=== PATIENT | female | born 1970 | race Caucasian/White ===

== ENCOUNTER 2021-04-13 02:05 | Inpatient (IN) | payer MEDICARE ==
[~2021-04-13] VITALS: Ht 167.6 cm; Wt 79.5 kg
[~2021-04-13 02:05] MED LIST: ACET500; ACETAMINOPHEN500 MG PO; Anaspaz0.125 MG PO; BACL10 PO; BACL20 PO; CHLO4 PO; ERGO400 PO; FLONASE ALLERG9.9 ML NS; GABA300 PO; HYOS.125 SL; LOESTRIN PO; MECL25 PO; MELO7.5 PO; METO10 PO; MEXI200 PO; Medi-Meclizine25 MG PO; NORT25 PO; ORACON PO; PHENYLEPHRINE HCL PO; VITAMIN D310 MC4 PO; [UNRECOGNIZED DRUG - OTHER] PO
[2021-04-13 02:53] LABS: BASOPHILS ABSOLUTE AUTO 0.05 K/mm3 (0.00-0.23); BASOPHILS PERCENT AUTO 1 % (0-2); EOSINOPHILS ABSOLUTE AUTO 0.08 K/mm3 (0.00-0.68); EOSINOPHILS PERCENT AUTO 1 % (0-6); Hematocrit 46.8 % (33.0-51.0); Hemoglobin 15.6 g/dL (11.5-16.0); IMMATURE GRAN ABSOLUTE AUTO 0.02 K/mm3 (0.00-0.10); IMMATURE GRAN PERCENT AUTO 0 % (0-1); LYMPHOCYTES ABSOLUTE AUTO 1.91 K/mm3 (0.84-5.20); LYMPHOCYTES PERCENT AUTO 21 % (21-46); MONOCYTES ABSOLUTE AUTO 0.56 K/mm3 (0.16-1.47); MONOCYTES PERCENT AUTO 6 % (4-13); Mean Corpuscular HGB 30.4 pg (26.0-34.0); Mean Corpuscular HGB Conc 33.3 g/dL (31.5-36.5); Mean Corpuscular Volume 91 fL (80-100); Mean Platelet Volume 12.4 fL (9.1-12.4); NEUTROPHILS ABSOLUTE AUTO 6.68 K/mm3 (1.96-9.15); NEUTROPHILS PERCENT AUTO 72 % (41-73); Platelet Count 214 K/mm3 (150-400); RDW Coefficient Variation 13.3 % (11.7-14.2); RDW Standard Deviation 45.3 fL (35.1-46.3); Red Blood Cell Count 5.14 M/mm3 (3.80-5.20)
[2021-04-13 03:18] LABS: Alanine Aminotransfer (ALT/SGP 29 U/L (12-78); Albumin, Blood 3.4 g/dL (3.4-5.0); Albumin/Globulin Ratio 0.8 (0.8-1.8); Alk Phos 129 U/L (50-136); Anion Gap 7 mmol/L (6-16); Aspartate Aminotrans (AST/SGOT 29 U/L (12-37); Bilirubin, Total 0.5 mg/dL (0.1-1.0); Blood Urea Nitrogen 5 mg/dL (8-24); Bun/Creatinine Ratio 6.1 (12.0-20.0); CO2, Blood 28 mmol/L (21-32); CPK Creatine Kinase 332 U/L (26-193); Calcium, Blood 9.7 mg/dL (8.5-10.1); Chloride, Blood 102 mmol/L (98-108); Creatine Kinase MB 1.2 ng/mL (0.0-3.6); Creatine Kinase MB Index 0.4 (0.0-4.0); Creatinine, Blood 0.82 mg/dL (0.40-1.00); Free Thyroxine 1.26 ng/dL (0.70-1.60); Globulin, Blood 4.5 g/dL (2.2-4.0); Glomerular Filtration Rate >60 (60-); Glucose, Blood 107 mg/dL (70-99); Potassium, Blood 3.8 mmol/L (3.5-5.5); Sodium, Blood 137 mmol/L (136-145); Total Protein, Blood 7.9 g/dL (6.4-8.2); Triiodothyronine, Free 3.41 pg/mL (2.18-3.98); Troponin I <0.015 ng/mL (0.000-0.040)
[2021-04-13 04:00] LABS: Source, Urine Clean Catch
[2021-04-13 04:02] LABS: Bilirubin, Urine Neg (Neg); Blood, Urine Neg (Neg); Glucose Qualitative, Urine Neg (Neg); Ketones, Urine Neg (Neg); Leukocyte Esterase, Urine Neg (Neg); Nitrite, Urine Neg (Neg); Protein, Urine Neg (Neg); Urobilinogen, Urine NORM (Normal)
[2021-04-13 04:05] LABS: Appearance, Urine Clear (Clear); Color, Urine Yellow (P-Yellow)
[2021-04-13] MEDS ORDERED: ROPI.25 PO (10:46)
--- NOTE | 2021-04-13 16:01 | NUR ---
PER OK TO ORDER NORTRIPTYLLINE 25 MG IF PATIENT HAS CLINE IN, WHICH SHE DOES.
--- NOTE | 2021-04-13 17:19 | NUR ---
ARRIVES TO FLOOR ABOUT 1030 AM. DOES NOT WISH TO HAVE STAFF HELP HER INTO MED FLOOR BED; INSTEAD, SHE SLIDES HERSELF OVER WHICH TAKES ABOUT 10 MINUTES. C/O VERTIGO IF LYING FLAT. VERY SLOW TO RESPOND TO QUESTIONS AND VEERS OFF TRACK OFTEN. COULD NOT LIE FLAT FOR MRI. DISCUSS WITH PATIENT ABOUTTAKING HER NORTRIPTILLINE AND MAYBE VALIUM PRIOR TO MRI. CLINE PLACED FOR RETENTION. UNLABORED RESPIRATIONS. WCTM
--- NOTE | 2021-04-14 03:21 | NUR ---
0320 PT REQUSTING HER HOME MED PEDRO PABLO BE ADDED FOR ALLERGIES.
--- NOTE | 2021-04-14 04:57 | NUR ---
SUMMARY PT REPORTS SOME VERTIGO AND HEADACHE. PT WAS ABLE TO SLEEP DURING SHIFT. PT DENIES ANY N/V. PT CLINE DRAINING WELL. PT AWAKE AND IN NO DISTRESS. CALL LIGHT IN REACH.
[2021-04-14 06:00] LABS: BASOPHILS ABSOLUTE AUTO 0.06 K/mm3 (0.00-0.23); BASOPHILS PERCENT AUTO 1 % (0-2); EOSINOPHILS PERCENT AUTO 3 % (0-6); Hematocrit 41.7 % (33.0-51.0); Hemoglobin 13.6 g/dL (11.5-16.0); IMMATURE GRAN ABSOLUTE AUTO 0.02 K/mm3 (0.00-0.10); IMMATURE GRAN PERCENT AUTO 0 % (0-1); LYMPHOCYTES ABSOLUTE AUTO 1.86 K/mm3 (0.84-5.20); LYMPHOCYTES PERCENT AUTO 24 % (21-46); MONOCYTES ABSOLUTE AUTO 0.62 K/mm3 (0.16-1.47); MONOCYTES PERCENT AUTO 8 % (4-13); Mean Corpuscular HGB 29.8 pg (26.0-34.0); Mean Corpuscular HGB Conc 32.6 g/dL (31.5-36.5); Mean Corpuscular Volume 91 fL (80-100); Mean Platelet Volume 12.5 fL (9.1-12.4); NEUTROPHILS ABSOLUTE AUTO 5.07 K/mm3 (1.96-9.15); NEUTROPHILS PERCENT AUTO 65 % (41-73); Platelet Count 176 K/mm3 (150-400); RDW Coefficient Variation 13.5 % (11.7-14.2); RDW Standard Deviation 46.2 fL (35.1-46.3); Red Blood Cell Count 4.56 M/mm3 (3.80-5.20); White Blood Cell Count 7.83 K/mm3 (4.00-11.30)
[2021-04-14 06:28] LABS: Alanine Aminotransfer (ALT/SGP 27 U/L (12-78); Albumin, Blood 2.9 g/dL (3.4-5.0); Albumin/Globulin Ratio 0.7 (0.8-1.8); Alk Phos 123 U/L (50-136); Anion Gap 5 mmol/L (6-16); Aspartate Aminotrans (AST/SGOT 26 U/L (12-37); Bilirubin, Total 0.7 mg/dL (0.1-1.0); Blood Urea Nitrogen 7 mg/dL (8-24); Bun/Creatinine Ratio 7.8 (12.0-20.0); CO2, Blood 29 mmol/L (21-32); CPK Creatine Kinase 197 U/L (26-193); Calcium, Blood 8.8 mg/dL (8.5-10.1); Chloride, Blood 103 mmol/L (98-108); Glomerular Filtration Rate >60 (60-); Glucose, Blood 83 mg/dL (70-99); Potassium, Blood 3.6 mmol/L (3.5-5.5); Sodium, Blood 137 mmol/L (136-145); Total Protein, Blood 6.9 g/dL (6.4-8.2)
--- NOTE | 2021-04-14 12:13 | NUR ---
PT TO IMAGING FOR MRI.
--- NOTE | 2021-04-14 16:49 | NUR ---
SHIFT SUMMARY- PT A/OX4, PLEASANT AND COOPERATIVE. PT MEDICATED X2 FOR NAUSEA. PT ABLE TO EAT SMALL AMOUNTS OF MEALS ONLY. PT CONTINUES TO REPORT PAIN TO BACK OF SKULL WITH TURNING HEAD, PT WAS ABLE TO TOLERATE MRI TODAY AND MASS NOTED. PT AWAITING [facility] TRANSFER. LS CLEAR, ON RA. 2+ BLE EDEMA. HR TACHY. CLINE PATENT AND DRAINING FOR URINARY RETENTION. PT REPORT CHRONIC NUMBNESS TO TOES. REMAINS BEDREST T/O THE DAY. IV DECADRON X1 GIVEN. PT AWAITING TRANSFER.
--- NOTE | 2021-04-14 17:07 | NUR ---
Update 04/14/21 1708: Per chart review with Dr. Cherry this am, [facility] neurology likely to be contacted for consult. This afternoon [facility] has accepted pt. and will be calling [facility] nurse to arrange for transport. BENEDICT call will be completed once patient is discharged from [facility].
--- NOTE | 2021-04-14 18:02 | NUR ---
REPORT CALLED TO DREW TORRES AT [facility]. TRANSPORT CALLED AND SPOUSE NOTIFIED AND AT BEDSIDE OF TRANSFER. PRN ZOFRAN AND VALIUM GIVEN PIOR TO TRANSPORT.
[2021-04-14 18:20] LABS: SARS-Cov-2 (COVID-19) PCR, MMC NEGATIVE (NEGATIVE)
--- NOTE | 2021-04-14 18:35 | NUR ---
PT DC'D TO [facility] VIA [facility] AT 181. SPOUSE AT BEDSIDE.
== END 2021-04-14 18:20 | disposition short-term general hospital (02) | DRG 70 ==
LOC: ER 02:05 → MEDS 08:31
PROVIDERS: Emergency Medicine; ADMIT Family Medicine
DX: G93.89 Other specified disorders of brain (principal); G93.6 Cerebral edema; M50.01 Cervical disc disorder with myelopathy, high cervical region; Z20.822 Contact with and (suspected) exposure to COVID-19; K58.9 Irritable bowel syndrome, unspecified; G43.909 Migraine, unspecified, not intractable, without status migrainosus; I34.1 Nonrheumatic mitral (valve) prolapse; F32.9 Major depressive disorder, single episode, unspecified; N32.89 Other specified disorders of bladder; Z88.1 Allergy status to other antibiotic agents; Z88.5 Allergy status to narcotic agent; Z88.6 Allergy status to analgesic agent; Z88.8 Allergy status to other drugs, medicaments and biological substances; Z85.3 Personal history of malignant neoplasm of breast; Z90.12 Acquired absence of left breast and nipple; Z90.49 Acquired absence of other specified parts of digestive tract; Z98.890 Other specified postprocedural states; Z87.891 Personal history of nicotine dependence; Z79.899 Other long term (current) drug therapy
CPT/HCPCS: 36415; 70553; 71045; 72141; 80053; 81003; 82550; 82553; 83605; 83735; 84439; 84443; 84481; 84484; 85025; 93005; 93010; 96374; 99285-25; A9270; A9579; J1100; J1650; J2405; J7030; P9612; U0004

== ENCOUNTER 2024-05-09 08:26 | Emergency (ER) | payer OTHER ==
[~2024-05-09] VITALS: Ht 167.6 cm; Wt 83.9 kg
[~2024-05-09 08:26] MED LIST changes: +ROPI.25 PO
[2024-05-09 08:52] LABS: Source, Urine Clean Catch
[2024-05-09 08:57] LABS: Appearance, Urine Clear (Clear); Bilirubin, Urine Neg (Neg); Blood, Urine Neg (Neg); Glucose Qualitative, Urine Neg (Neg); Ketones, Urine Neg (Neg); Leukocyte Esterase, Urine 2+ (Neg); Nitrite, Urine Neg (Neg); Protein, Urine Neg (Neg); Urobilinogen, Urine NORM (Normal)
[2024-05-09] MEDS ORDERED: Phenergan25 M1 PO (08:59)
[2024-05-09] MEDS ORDERED: ONDA4 PO (08:59)
[2024-05-09] MEDS ORDERED: DIAZEPAM2 M2 PO (09:00)
[2024-05-09 09:20] LABS: Color, Urine Pale Yellow (P-Yellow)
[2024-05-09 09:24] LABS: Bacteria Many /hpf; Red Blood Cells, Urine 0-2 /hpf (0-2); Squamous Epithelial Cells Rare /hpf (Few); Transitional Epithelial Cells Rare /hpf (0-Rare)
[2024-05-09 09:53] LABS: BASOPHILS ABSOLUTE AUTO 0.03 K/mm3 (0.00-0.23); BASOPHILS PERCENT AUTO 0 % (0-2); EOSINOPHILS ABSOLUTE AUTO 0.06 K/mm3 (0.00-0.68); EOSINOPHILS PERCENT AUTO 1 % (0-6); Hematocrit 37.2 % (33.0-51.0); Hemoglobin 12.5 g/dL (11.5-16.0); IMMATURE GRAN ABSOLUTE AUTO 0.02 K/mm3 (0.00-0.10); IMMATURE GRAN PERCENT AUTO 0 % (0-1); LYMPHOCYTES ABSOLUTE AUTO 1.29 K/mm3 (0.84-5.20); LYMPHOCYTES PERCENT AUTO 19 % (21-46); MONOCYTES ABSOLUTE AUTO 0.73 K/mm3 (0.16-1.47); MONOCYTES PERCENT AUTO 11 % (4-13); Mean Corpuscular HGB 31.2 pg (26.0-34.0); Mean Corpuscular HGB Conc 33.6 g/dL (31.5-36.5); Mean Corpuscular Volume 93 fL (80-100); Mean Platelet Volume 11.1 fL (9.1-12.4); NEUTROPHILS ABSOLUTE AUTO 4.58 K/mm3 (1.96-9.15); NEUTROPHILS PERCENT AUTO 68 % (41-73); Platelet Count 146 K/mm3 (150-400); RDW Coefficient Variation 13.5 % (11.7-14.2); RDW Standard Deviation 46.3 fL (35.1-46.3); Red Blood Cell Count 4.01 M/mm3 (3.80-5.20); White Blood Cell Count 6.71 K/mm3 (4.00-11.30)
[2024-05-09] MEDS ORDERED: Ondansetron HCl 2 MG / ML 2ML Vial IV ONE ×2 (10:05→17:10)
[2024-05-09 10:11] LABS: Albumin, Blood 3.4 g/dL (3.4-5.0); Albumin/Globulin Ratio 0.9 (0.8-1.8); Bilirubin, Total 0.4 mg/dL (0.1-1.0); Bun/Creatinine Ratio 14.7 (12.0-20.0); Calcium, Blood 8.9 mg/dL (8.5-10.1); Creatinine, Blood 0.88 mg/dL (0.40-1.00); Globulin, Blood 3.8 g/dL (2.2-4.0); Magnesium, Blood 2.2 mg/dL (1.6-2.4); Total Protein, Blood 7.2 g/dL (6.4-8.2)
[2024-05-09] MEDS ORDERED: CefTRIAXone Sodium 1,000 MG in NS 100 ML IV ONE (10:45)
[2024-05-09] MEDS ORDERED: Gabapentin 300 MG Cap PO ONE (10:50)
[2024-05-09] MEDS ORDERED: Baclofen 10 MG Tab PO ONE (10:55)
[2024-05-09] MEDS ORDERED: Acetaminophen 500 MG Tab PO ONE (10:55)
[2024-05-09] MEDS ORDERED: rOPINIRole HCl 0.25 MG Tab PO ONE (13:10)
[2024-05-09] MEDS ORDERED: Dexamethasone Sod Phos 10 MG/ML 1ML VIAL IV ONE (16:20)
[2024-05-09] MEDS ORDERED: Pantoprazole Sodium 40 MG Injection IV ONE (16:25)
[2024-05-09] MEDS ORDERED: Diazepam 5 MG / ML 2ML SYR IV ONE (17:05)
[2024-05-09 18:00] VITALS: BP 108/64
== END 2024-05-09 18:30 | disposition short-term general hospital (02) ==
LOC: ER 08:26
PROVIDERS: Emergency Medicine
DX: G95.89 Other specified diseases of spinal cord (principal); R33.9 Retention of urine, unspecified; G43.909 Migraine, unspecified, not intractable, without status migrainosus; Z87.891 Personal history of nicotine dependence; Z79.899 Other long term (current) drug therapy; Z88.5 Allergy status to narcotic agent; Z88.6 Allergy status to analgesic agent; Z88.1 Allergy status to other antibiotic agents; Z88.8 Allergy status to other drugs, medicaments and biological substances
CPT/HCPCS: 51702; 70450; 70496; 71045; 72158; 80053; 81001; 82330; 83735; 85025; 87086; 96365-59; 96375-59; 96376-59; 99285-25; A9270; A9579; C9113; J0696; J1100; J2405; J3360; Q9967

== ENCOUNTER 2024-08-19 16:34 | Inpatient (IN) | payer OTHER ==
[~2024-08-19] VITALS: Ht 167.6 cm; Wt 65.8 kg
[~2024-08-19 16:34] MED LIST changes: +DIAZEPAM2 M2 PO; +ONDA4 PO; +Phenergan25 M1 PO
[2024-08-19] MEDS ORDERED: Metoclopramide HCl 5MG / ML 2ML Vial IV ONE (17:00)
[2024-08-19] MEDS ORDERED: NS 1,000 ML IV SCH (17:00)
[2024-08-19 17:29] LABS: BASOPHILS ABSOLUTE AUTO 0.02 K/mm3 (0.00-0.23); BASOPHILS PERCENT AUTO 0 % (0-2); EOSINOPHILS ABSOLUTE AUTO 0.03 K/mm3 (0.00-0.68); EOSINOPHILS PERCENT AUTO 1 % (0-6); Hematocrit 34.8 % (33.0-51.0); Hemoglobin 11.7 g/dL (11.5-16.0); IMMATURE GRAN PERCENT AUTO 2 % (0-1); LYMPHOCYTES ABSOLUTE AUTO 0.47 K/mm3 (0.84-5.20); LYMPHOCYTES PERCENT AUTO 8 % (21-46); MONOCYTES ABSOLUTE AUTO 0.54 K/mm3 (0.16-1.47); MONOCYTES PERCENT AUTO 9 % (4-13); Mean Corpuscular HGB 32.4 pg (26.0-34.0); Mean Corpuscular HGB Conc 33.6 g/dL (31.5-36.5); Mean Corpuscular Volume 96 fL (80-100); Mean Platelet Volume 10.8 fL (9.1-12.4); NEUTROPHILS ABSOLUTE AUTO 5.07 K/mm3 (1.96-9.15); NEUTROPHILS PERCENT AUTO 81 % (41-73); Platelet Count 213 K/mm3 (150-400); RDW Coefficient Variation 13.4 % (11.7-14.2); RDW Standard Deviation 48.1 fL (35.1-46.3); Red Blood Cell Count 3.61 M/mm3 (3.80-5.20); White Blood Cell Count 6.23 K/mm3 (4.00-11.30)
[2024-08-19 18:14] LABS: Albumin, Blood 1.8 g/dL (3.4-5.0); Albumin/Globulin Ratio 0.4 (0.8-1.8); Bilirubin, Total 0.8 mg/dL (0.1-1.0); Bun/Creatinine Ratio 22.6 (12.0-20.0); Calcium, Blood 8.4 mg/dL (8.5-10.1); Creatinine, Blood 0.4 mg/dL (0.40-1.00); Globulin, Blood 4.5 g/dL (2.2-4.0); Potassium, Blood 3.1 mmol/L (3.5-5.5); Total Protein, Blood 6.3 g/dL (6.4-8.2)
[2024-08-19 20:52] LABS: Bilirubin, Urine Neg (Neg); Blood, Urine 2+ (Neg); Glucose Qualitative, Urine Neg (Neg); Ketones, Urine 4+ (Neg); Leukocyte Esterase, Urine 1+ (Neg); Nitrite, Urine Neg (Neg); Protein, Urine 2+ (Neg); Specific Gravity, Urine 1.005 (1.003-1.022); Urobilinogen, Urine 1+ (Normal)
[2024-08-19 20:53] LABS: Appearance, Urine Hazy (Clear); Color, Urine Yellow (P-Yellow)
[2024-08-19 20:58] LABS: Amorphous Mod (0-Heavy); Bacteria Many /hpf; Mucus Mod (0-Heavy); Red Blood Cells, Urine 0-2 /hpf (0-2); Squamous Epithelial Cells Few /hpf (Few); White Blood Cells, Urine 0-2 /hpf (0-5)
[2024-08-19] MEDS ORDERED: FLU VACC TS2024-25(6MOS UP)/PF 45 MCG/0.5 ML SYRINGE IM SCH (21:45)
[2024-08-19] MEDS ORDERED: Potassium Chl 20MEQ/Water100ML 100 ML IV SCH (23:00)
[2024-08-19 23:01] LABS: Anti-Xa UFH, PHA Monitoring <0.10 IU/mL; International Normalized Ratio 2.33; Prothrombin Time Results 23.4 Sec (9.7-11.5)
[2024-08-19] MEDS ORDERED: Heparin Sodium,Porcine/0.5 NS 500 ML IV SCH (23:25)
[2024-08-20] VITALS (7 sets, daily range): BP systolic 118–130; BP diastolic 86–95
[2024-08-20] MEDS ORDERED: Ondansetron HCl 2 MG / ML 2ML Vial IV PRN (00:05)
[2024-08-20] MEDS ORDERED: NS 250 ML IV PRN (00:45)
[2024-08-20] MEDS ORDERED: Ondansetron HCl 2 MG / ML 2ML Vial IV ONE (01:30)
--- NOTE | 2024-08-20 02:13 | NUR ---
ARRIVAL TO PCU AFTER RECEIVING REPORT FROM ZACH RUSSELL, PATIENT TRANSFERRED FROM ED AT APPROX 0030. PATIENT TRANSFERRED FROM [facility] TO BED WITH SLIDER SHEET. PATIENT ALERT AND ORIENTED X4. R SIDED FACIAL DROOP WITH R SIDED WEAKNESS. OCCASIONAL SLURRED SPEECH. HX OF BREAST CANCER WITH METS TO SPINE - LIMITED MOBILITY. USES WHEELCHAIR AT BASELINE. WAS ABLE TO ASSIST WITH REPOSITIONING IN BED. IS INCONTINENT OF URINE, STOOL AT BASELINE - ATTENDS AND PUREWICK PLACED. TELEMETRY SHOWING SINUS TACH 110s-120s. BP STABLE. DENIES CHEST PAIN, PRESSURE. ON ROOM AIR, SATs >90%. RR SHALLOW, TACHYPNEA. DENIES SHORTNESS OF BREATH. HEPARIN GTT INFUSING PER EMAR AT ADJUSTED RATE DUE TO ACCURATE WEIGHT. REPORTS NAUSEA AND ABD TENDERNESS. DREW GARRIDO CONTACTED MD FOR NAUSEA - ORDER RECEIVED FOR IV ZOFRAN. IS NPO FOR SPEECH THERAPY EVAL. CALL LIGHT IN REACH.
--- NOTE | 2024-08-20 02:44 | NUR ---
UPDATE CONTACT INFO PT'S KRISH
[2024-08-20] MEDS ORDERED: Hyoscyamine Sulfate 0.125 MG Tab SL PRN (04:45)
[2024-08-20 05:39] LABS: BASOPHILS ABSOLUTE AUTO 0.02 K/mm3 (0.00-0.23); BASOPHILS PERCENT AUTO 0 % (0-2); EOSINOPHILS ABSOLUTE AUTO 0.03 K/mm3 (0.00-0.68); EOSINOPHILS PERCENT AUTO 0 % (0-6); IMMATURE GRAN ABSOLUTE AUTO 0.14 K/mm3 (0.00-0.10); IMMATURE GRAN PERCENT AUTO 2 % (0-1); LYMPHOCYTES ABSOLUTE AUTO 0.54 K/mm3 (0.84-5.20); LYMPHOCYTES PERCENT AUTO 8 % (21-46); MONOCYTES PERCENT AUTO 10 % (4-13); Mean Corpuscular HGB 32.1 pg (26.0-34.0); Mean Corpuscular HGB Conc 33.3 g/dL (31.5-36.5); Mean Corpuscular Volume 96 fL (80-100); Mean Platelet Volume 11.1 fL (9.1-12.4); NEUTROPHILS ABSOLUTE AUTO 5.57 K/mm3 (1.96-9.15); NEUTROPHILS PERCENT AUTO 80 % (41-73); Platelet Count 230 K/mm3 (150-400); RDW Coefficient Variation 13.5 % (11.7-14.2); RDW Standard Deviation 48.2 fL (35.1-46.3); Red Blood Cell Count 3.43 M/mm3 (3.80-5.20)
[2024-08-20 05:52] LABS: Bun/Creatinine Ratio 12.4 (12.0-20.0); Creatinine, Blood 0.4 mg/dL (0.40-1.00)
[2024-08-20] MEDS ORDERED: Potassium Chl 20MEQ/Water100ML 100 ML IV SCH (06:05)
--- NOTE | 2024-08-20 06:07 | NUR ---
SHIFT SUMMARY NO ACUTE EVENTS OVERNIGHT. REMAINS ALERT AND ORIENTED X4. CONTINUED R SIDED FACIAL DROOP WITH R SIDED WEAKNESS. PLAN FOR MRI TODAY - MRI SCREENING FORM COMPLETED AND SCANNED TO IMAGING. LOCATED IN CHART. PATIENT REPORTS PREVIOUS MRIs IN THE PAST AND NEEDS VALIUM TO HELP WITH PROCESS. MD KELLEY CONTACTED - ORDER RECEIVED FOR ONE TIME 2.5MG IV VALIUM TO BE ADMINISTERED 15 MINUTES PRIOR TO MRI. TELEMETRY SHOWING SINUS TACH 110s-120s. BP STABLE, SBP 110s-120s. REMAINS ON ROOM AIR, SATs >90%. RR EVEN, UNLABORED. IS REPORTING INTERMITTENT ABD PAIN AND NAUSEA. MEDICATED PER EMAR WITH IV ZOFRAN WITH RELIEF. CONTINUED ABD CRAMPING. PATIENT TAKES HYOSCYAMINE SULFATE AT HOME FOR ABD PAIN, CRAMPING. CONTACTED, ORDER RECEIVED. ADMINISTERED PER EMAR WITH SOME RELIEF. HAS NOT VOIDED SINCE ARRIVAL TO UNIT. BLADDER SCAN X2 PERFORMED SHOWING APPROX 250ML. PUREWICK AND ATTENDS IN PLACE. POTASSIUM 3.0 THIS MORNING DESPITE TOTAL OF 40MEQ IV ADMINISTERED PER EMAR. MD KELLEY CONTACTED. ORDER RECEIVED FOR AN ADDITIONAL 40MEQ IV. WILL CONTINUE TO MONITOR AND REPORT TO ONCOMING RN.
[2024-08-20] MEDS ORDERED: Diazepam 5 MG / ML 2ML SYR IV PRN (06:10)
[2024-08-20] MEDS ORDERED: Dose Adjust by Pharmacy XX STA ×2 (07:13→19:21)
--- NOTE | 2024-08-20 10:42 | NUR ---
SPEECH THERAPY SAW PATIENT AND DIET ORDER IS CLEAR LIQUIDS AND PATIENT WAS OKAY WITH THAT WELL. ECHO WAS DONE THIS MORNING AWAITING RESULTS. POTASSIUM WAS STARTED VIA POWERGLIDE PER EMAR POTASSIUM MORNIG LAB DRAW WAS LOW. PATIENT IS RESTING WITH CALL LIGHT IN PLACE AND BED AT THE LOWEST POSITION.
--- NOTE | 2024-08-20 11:35 | NUR ---
PATIENT TAKEN TO MRI AND DOCTOR KHOI PLACED A NEW ORDER FOR A CT PE STUDY THAT WILL BE DONE AT THE SAME TIME. PATIENT WAS MEDICATED WITH VALIUM PER EMAR PRIOR TO LEAVING.
--- NOTE | 2024-08-20 15:09 | NUR ---
PATIENT WAS BLADDER SCANNED AND AMOUNT WAS 550, STRAIGHT CATH WAS INSERTED AND 620MLS WAS VOIDED. PATIENT URINE WAS DARK WITH SOME SEDIMENT.
[2024-08-20] MEDS ORDERED: Simethicone 80 MG Chew PO PRN (16:20)
[2024-08-20] MEDS ORDERED: Pantoprazole Sodium 40 MG Tab PO SCH (16:30)
--- NOTE | 2024-08-20 18:02 | NUR ---
CALL PLACED TO REGARDING PATIENT PERSISTENT NAUSEA AND DRYHEAVING AND RESULTS OF DUPLEX DOPPLER IMAGING.
--- NOTE | 2024-08-20 18:03 | NUR ---
END OF SHIFT SUMMARY: PT A&OX4 AND ACTIVE IN HER CARE. ON TELE SHOWING SINUS TACH WITH RATE BETWEEN 110-120. SATTING >92% ON ROOM AIR. DOES HAVE A RIGHT FACIAL DROOP WITH RIGHT SIDED WEAKNESS THAT IS NEW TO PATIENT WITHOUT A POSSIBLE CAUSE CURRENTLY. LEFT PUPIL IS BLOWN. 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 HAD AN ECHO,MRI AND CT PE STUDY AND DOPPLER DUPLEX DONE TODAY WITH RESULTS IN THE CHART. WAS MEDICATED WITH VALIUM PRIOR TO GOING TO MRI FOR ANXIETY. HEPARING WAS DECREASED TO RUN AT 17U/KG AND VERIFIED BY 2ND RN LORENA. HAS BEEN GETTING ZOFRAN REGULARLY FOR FEELING NAUSEAOUS AND ADDED GASX FOR GAS PAINS AND PT STATED IT HELPED A LITTLE BIT. 40MEQ'S WERE GIVEN IV FOR LOW POTASSIUM THAT HAS LEVELED OUT TO SPEECH THERAPY SAW HER TODAY AND IS ON A CLEAR LIQUID DIET BUT DID NOT EAT MUCH TODAY. WAS BLADDER SCANNED TODAY SHOWING 540ML'S AND WAS STRAIGHT CATHED ONCE ON SHIFT. IS INCONTINENT AND HAS A PUREWICK PLACED CONNECTED TO SUCTION. WILL NOTIFY TO ONCOMING BACK HANGER RN.
[2024-08-20] MEDS ORDERED: Metoclopramide HCl 5MG / ML 2ML Vial IV PRN (18:10)
[2024-08-20] MEDS ORDERED: Arginine/Glutamine/Calcium Hmb 1 Packet PO SCH (21:00)
[2024-08-21] VITALS (19 sets, daily range): BP systolic 63–98; BP diastolic 35–80
[2024-08-21] MEDS ORDERED: Polyethylene Glycol 3350 17 gm PO ONE (00:20)
[2024-08-21] MEDS ORDERED: FentaNYL Citrate 50 MCG/ML 2 ML Injection IV PRN (01:20)
[2024-08-21] MEDS ORDERED: Dose Adjust by Pharmacy XX STA (02:11)
[2024-08-21] MEDS ORDERED: NS 500 ML IV ONE ×2 (03:14→07:10)
[2024-08-21 03:19] LABS: BASOPHILS ABSOLUTE AUTO 0.04 K/mm3 (0.00-0.23); BASOPHILS PERCENT AUTO 0 % (0-2); EOSINOPHILS ABSOLUTE AUTO 0.03 K/mm3 (0.00-0.68); EOSINOPHILS PERCENT AUTO 0 % (0-6); Hematocrit 28.5 % (33.0-51.0); Hemoglobin 9.5 g/dL (11.5-16.0); IMMATURE GRAN ABSOLUTE AUTO 0.31 K/mm3 (0.00-0.10); IMMATURE GRAN PERCENT AUTO 3 % (0-1); LYMPHOCYTES PERCENT AUTO 10 % (21-46); MONOCYTES ABSOLUTE AUTO 0.95 K/mm3 (0.16-1.47); MONOCYTES PERCENT AUTO 10 % (4-13); Mean Corpuscular HGB 32.5 pg (26.0-34.0); Mean Corpuscular HGB Conc 33.3 g/dL (31.5-36.5); Mean Corpuscular Volume 98 fL (80-100); Mean Platelet Volume 11.1 fL (9.1-12.4); NEUTROPHILS ABSOLUTE AUTO 7.35 K/mm3 (1.96-9.15); NEUTROPHILS PERCENT AUTO 76 % (41-73); NRBC ABSOLUTE 0.07 K/mm3 (0.00-0.02); NRBC Auto 0.7 /100 WBC (0.0-0.2); Platelet Count 259 K/mm3 (150-400); RDW Coefficient Variation 13.7 % (11.7-14.2); RDW Standard Deviation 48.6 fL (35.1-46.3); Red Blood Cell Count 2.92 M/mm3 (3.80-5.20); White Blood Cell Count 9.68 K/mm3 (4.00-11.30)
[2024-08-21] MEDS ORDERED: NS 1,000 ML BAG IR ONE (03:20)
[2024-08-21] MEDS ORDERED: NS 500 ML IV SCH (03:25)
[2024-08-21 03:38] LABS: Albumin, Blood 1.8 g/dL (3.4-5.0); Albumin/Globulin Ratio 0.5 (0.8-1.8); Bilirubin, Total 0.5 mg/dL (0.1-1.0); Bun/Creatinine Ratio 23.6 (12.0-20.0); Calcium, Blood 8.7 mg/dL (8.5-10.1); Creatinine, Blood 0.47 mg/dL (0.40-1.00); Globulin, Blood 3.8 g/dL (2.2-4.0); Magnesium, Blood 1.5 mg/dL (1.6-2.4); Potassium, Blood 3.9 mmol/L (3.5-5.5); Total Protein, Blood 5.6 g/dL (6.4-8.2)
[2024-08-21] MEDS ORDERED: Magnesium Sulf 2 GM/Water 50ML 50 ML IV ONE ×2 (03:45→07:20)
[2024-08-21] MEDS ORDERED: NS 500 ML IR ONE (04:50)
[2024-08-21] MEDS ORDERED: Metoprolol Tartrate 1 MG/ML 5 ML VIAL IV ONE (04:50)
--- NOTE | 2024-08-21 05:51 | NUR ---
SHIFT SUMMARY ASSUMED CARE OF PT AT 1900. PT A&O4 AND COOPERATES IN CARE. HR 120S AND ALL OTHER VSS. PT REPORTED PAIN IN ABDOMEN, REVIEWED CT OF ABDOMEN WITH RESIDENT AND MD STATED TO JUST GIVE LEVSIN, MED GIVEN AND PT REPORTED NO RELIEF. RELIEF RN CONTACTED RESIDENT FOR ADDITIONAL PAIN MED BUT NO PRN PAIN MED ORDER GIVEN MIRALAX ORDER GIVEN D/T PT REPORTING NO RECENT BM. SHORTLY AFTER, PT CALLED AGAIN EXPRESSING INCREASED ABDOMINAL PAIN. SPOKE TO SUPERVISOR HAND SILVERING OF SITUATION AND RN NOTIFIED MD KELLEY OF SITUATION, ORDERED PRN IV MEDS TO BE GIVEN. APPROX AT THIS TIME, PT'S HR TERESA TO 140S AND SUSTAINED, BP DROPPED. NOTIFIED RESIDENT; BOLUS AND LABS ORDERED AND MD CAME TO BEDSIDE. BP SLOWLY RISING WITH A MAP AT 65 BUT HR ONLY DROPPED TO 130S. NOTIFIED OF RESIDENT OF LABS ORDERED MAG. MAG GIVEN WITH NO DECREASE IN HR, BP MAP MAINTAINED AT 65. NOTIFIED RESIDENT OF THE UPDATE, ORDERED METOPROLOL IVP AND FLUIDS AT 125ML. PT'S HR DECRESED TO 90S- LOW 100S BUT BP REMAINED LOW WITH MAPS OF AT LEAST 65. WILL UPDATE ON COMING RN OF OVERNIGHT EVENTS. PT'S BED IN LOWEST POSITION AND CALL LIGHT WITHIN REACH.
[2024-08-21] MEDS ORDERED: NS 1,000 ML IV SCH (07:10)
--- NOTE | 2024-08-21 08:14 | NUR ---
CALLED TO PT'S ROOM BY SENIOR C SOFTWARE ENGINEER. PT BECAME HYPOTENSIVE AROUND 0300 PER V/S RECORDS. SHE REMAINS TACHYCARDIC. PT DENIES CP/SOB AT THIS TIME. PT NOTED TO HAVE LEFT FACIAL DROOPING AND NUMBNESS ON ADMISSION PER PROVIDER PROGRESS NOTE. CURRENTLY PT IS LEANING TO THE RIGHT WITH A RIGHT FACIAL DROOP, OF WHICH IS NEW THIS MORNING. REVIEWED CODE STATUS WITH PT. SHE IS CURRENTLY A FULL CODE/FULL TX. SHE DOES NOT WANT TO MAKE ANY CODE STATUS CHANGES UNTIL HER , KRISH COMES IN. THIS PC RN CALLED KRISH WITH AN UPDATE RE: ABOVE STATED INFORMATION. KRISH WILL BE COMING IN TO THE HOSPITAL THIS MORNING FOR A GOALS OF CARE CONVERSATION. UPDATE PROVIDED TO PRIMARY RN, SENIOR C SOFTWARE ENGINEER AND PROVIDER.
[2024-08-21] MEDS ORDERED: Acetaminophen 650 MG Supp PR PRN (11:15)
[2024-08-21] MEDS ORDERED: LORazepam 0.5 MG Tab PO PRN (11:15)
[2024-08-21] MEDS ORDERED: Morphine Sulfate 20 MG/1ML 1 ML Oral Syringe SL PRN (11:40)
[2024-08-21] MEDS ORDERED: Atropine Sulfate 1% Opth Soln 2ML BTL SL PRN (11:55)
--- NOTE | 2024-08-21 11:55 | NUR ---
PALLIATIVE CARE TO BEDSIDE AND TALKED WITH PT AND FAMILY MEMBER TO CHANGE STATUS TO COMFORT CARE. COMFORT CARE ORDERS WERE PLACED AND PATIENT STARTED TO TRANSITION. PATIENT COMPLAINED OF DIFFICULTY BREATHING, NASAL CANNULA PLACED. PATIENT BECAME NONRESPONSIVE AND STARTED AGONAL BREATHING. REPOSITIONED TO RESCUE POSITION ON LEFT SIDE AND ROXANOL WAS ADMINISTERED FOR COMFORT. PATIENT AND SPIRITUAL CARE AT BEDSIDE.
--- NOTE | 2024-08-21 12:15 | NUR ---
"Spiritual Care | EOL Education - [facility] Pt. is on comfort care, and mostly not responsive. Family is at bedside, and Pts. deli/bakery associate soon arrives. Facilitated support of EOL decisions with sister. The family had chosen [facility] for their home. EOL education is given. Sister verbalized gratitude for the spiritual care support."
--- NOTE | 2024-08-21 12:33 | NUR ---
GOALS OF CARE MEETING WITH PT, (AT BEDSIDE) AND MCKENZIE (VIA PHONE) @ 0900. PT AND REQUESTED CODE STATUS OF DNR. WITH A DELAY IN GOALS OF CARE CONVERSATION UNTIL LATER TODAY. @ 0945 PROVIDED COMFORT CARE, EOL CARE EDUCATION WITH FAHAD AND HER , KRISH. FAHAD REQUESTED HOSPICE AND A FEW MINUTES LATER ASKED WHEN SHE WAS GOING TO BE STARTED ON PRESSORS. ADDITIONAL EDUCATION RE: CURATIVE/QTY VS COMFORT/QUALITY CARE PROVIDED. PT AND ASKED THIS PC RN TO SPEAK WITH PT'S CED RINCON VIA PHONE WITH UPDATE. APX 1015 THIS PC RN AT BEDSIDE TO CONFIRM REQUEST FOR DNR/ASSISTANT WOMENS VOLLEYBALL COACH. PRIMARY RN AT BEDSIDE FOR BLADDER SCAN. PT'S MENTATION HAD A DRASTIC CHANGE. DELIRIUM WITH MEMORY SENSE NOTED PT ASKED FOR SOMETHING TO DRINK, PRETEND HANDED HER A SODA, PT TOOK IMAGINARY SODA, UNSCREWED CAP, TOOK AN UMAGINARY DRINK, PLACED CAP BACK ON AND HANDED IT BACK TO HER . ASKED PT NAME, "CED MITTAL" , "" WHERE ARE YOU? HOME ARE YOU AT THE [facility]CTORS OFFICE OR HOSPITAL? AT HOME , KRISH AND CED RINCON BOTH ENDOURSE COMFORT CARE AND REQUEST IT BE STARTED NOW. PHONE CALL PLACED TO PROVIDER. POLST FORM FILLED OUT AND SIGNED FOR DNR/ASSISTANT WOMENS VOLLEYBALL COACH. COMFORT CARE ORDERS PLACED PER PROVIDER REQUEST. CLARIFIED WITH ALLERGY TO CODEINE IS NOT ANAPHYLACTIC. ROXANOL OKAYED FOR USE WITH MG Hazel RP. PRIMARY RN REPORTS PT'S BREATHING CHANGED. ASSISTED CARE TEAM WITH REPOSITIONING TO A RESCUE POSITION AND ADVISED TO ADMINISTER LORAZEPAM. PC TO REMAIN AVAILABLE NEEDED.
--- NOTE | 2024-08-21 13:52 | NUR ---
PT TIME OF CALLED AT 1340 AND VERIFIED WITH TWO RN CHECK (LORENA & PATTY RN). CHARGE NURSE NOTIFIED & DOCTOR KHOI CALLED. PT FAMILY IN ROOM AT THIS TIME.
== END 2024-08-22 00:15 | DRG 176 ==
LOC: ER 16:34 → PCU 16:35
PROVIDERS: Emergency Medicine; Family Medicine; ADMIT Student in an Organized Health Care Education/Training Program
PROC: 3E03329 Introduction of Other Anti-infective into Peripheral Vein, Percutaneous Approach (ICD-10-PCS; 2024-08-19)
PROC: 3E033XZ Introduction of Vasopressor into Peripheral Vein, Percutaneous Approach (ICD-10-PCS; principal; 2024-08-21)
PROC: 0T9B70Z Drainage of Bladder with Drainage Device, Via Natural or Artificial Opening (ICD-10-PCS; 2024-08-21)
DX: I26.92 Saddle embolus of pulmonary artery without acute cor pulmonale (principal); I82.451 Acute embolism and thrombosis of right peroneal vein; I82.441 Acute embolism and thrombosis of right tibial vein; C79.51 Secondary malignant neoplasm of bone; N39.0 Urinary tract infection, site not specified; C79.31 Secondary malignant neoplasm of brain; I82.413 Acute embolism and thrombosis of femoral vein, bilateral; I82.431 Acute embolism and thrombosis of right popliteal vein; Z66 Do not resuscitate; Z51.5 Encounter for palliative care; G25.81 Restless legs syndrome; G43.909 Migraine, unspecified, not intractable, without status migrainosus; K58.9 Irritable bowel syndrome, unspecified; R29.810 Facial weakness; E87.6 Hypokalemia; N32.89 Other specified disorders of bladder; M48.02 Spinal stenosis, cervical region; H49.22 Sixth [abducent] nerve palsy, left eye; Z90.49 Acquired absence of other specified parts of digestive tract; Z98.890 Other specified postprocedural states; Z90.12 Acquired absence of left breast and nipple; Z87.891 Personal history of nicotine dependence; Z88.1 Allergy status to other antibiotic agents; Z88.5 Allergy status to narcotic agent; Z88.6 Allergy status to analgesic agent; Z92.3 Personal history of irradiation; Z85.3 Personal history of malignant neoplasm of breast; Z99.3 Dependence on wheelchair; Z88.8 Allergy status to other drugs, medicaments and biological substances; Z79.899 Other long term (current) drug therapy; Z74.01 Bed confinement status; Z17.421 Hormone receptor negative with human epidermal growth factor receptor 2 negative status; Z92.21 Personal history of antineoplastic chemotherapy; Z85.118 Personal history of other malignant neoplasm of bronchus and lung; Z85.89 Personal history of malignant neoplasm of other organs and systems
CPT/HCPCS: 51701; 51798; 70450; 70553; 71260; 74177; 80048; 80053; 81001; 82947; 83690; 83735; 83880; 84484; 85025; 85520; 85610; 85730; 87077; 87086; 87186; 92610; 93005; 93010; 93306; 93970; 96361-59; 96365-59; 96366; 96367; 96375; 96375-59; 96376; 99285-25; A9270; A9579; C1751; G0378; J1644; J2405; J2765; J3010; J3360; J3475; J3480; J7030; J7040; J7050; Q9967